=== PATIENT | male | born 1950 | race Caucasian/White ===

== ENCOUNTER 2016-09-08 08:10 | Day surgery (SDC) | payer MEDICARE, OTHER ==
[~2016-09-08 08:10] MED LIST: Metoclopramide 10 MG/2 ML SDV IV PRN; Sodium Chloride 0.9% 10 ML Syringe FLUSH PRN
[2016-09-08] MEDS ORDERED: Sodium Chloride 0.9% 1,000 ML IV SCH (08:45)
[2016-09-08] MEDS ORDERED: Propofol 200 MG/20 ML SDV ONE (10:15)
[2016-09-08] MEDS ORDERED: Midazolam 1 MG/ML 5 ML SDV ONE (10:15)
--- NOTE | 2016-09-08 13:06 | OR ---
DATE OF OPERATION: PREOPERATIVE DIAGNOSIS: Screening colonoscopy. POSTOPERATIVE DIAGNOSIS: Normal colonoscopy. OPERATION: Screening colonoscopy. COMPLICATIONS: None. DRAINS: None. SPECIMENS: None. ESTIMATED BLOOD LOSS: Zero. ANESTHESIA: General propofol anesthesia. INDICATION: Mr. Ch is a 66-year-old gentleman, who had a previous colonoscopy over 10 years ago. He is here for a followup screening colonoscopy. He is of average risk. The above-mentioned procedure was explained. The risks, benefits, and complications were explained. The patient understood, agreed, and was brought to the operating room. DESCRIPTION OF PROCEDURE: The patient was brought to the operating room, placed in a left lateral decubitus position on the operating table. Satisfactory general propofol anesthesia was administered. We began by performing a rectal examination, which was within normal limits. I then placed the endoscope by finger introduction into the rectum and advanced this to the level of the cecum. Cecum was identified by the appendiceal orifice, the ileocecal valve and the cecal strap. We then carefully evaluated the mucosa on withdrawal. There were no telangiectasias, no polyps, no neoplastic growths, and no diverticula. We then performed a retroflexion maneuver in the rectum, which was within normal limits. The colon was then decompressed and the endoscope was withdrawn. The patient tolerated the procedure well. There were no complications. Instrument count was correct. The patient was awoken in the OR and taken to PACU for recovery. KIN /[id number]
[2016-09-08 14:24] VITALS: BP 139/73
== END 2016-09-08 12:10 | disposition home or self-care (01) ==
LOC: LB.SDS 08:10
PROVIDERS: ATTEND Surgery
PROC: 0DJD8ZZ Inspection of Lower Intestinal Tract, Via Natural or Artificial Opening Endoscopic (ICD-10-PCS; principal; 2016-09-08)
DX: Z12.11 Encounter for screening for malignant neoplasm of colon (principal); I25.10 Atherosclerotic heart disease of native coronary artery without angina pectoris; I10 Essential (primary) hypertension; E78.5 Hyperlipidemia, unspecified; Z95.5 Presence of coronary angioplasty implant and graft
CPT/HCPCS: 45378; J2250; J2704; J7040